=== PATIENT | female | born 1975 | race American Indian/Alaskan Native ===

== ENCOUNTER 2016-04-20 20:05 | Inpatient (IN) | payer SELFPAY ==
[2016-04-20 20:18] LABS: Basophils % (Auto) 0.6 % (0.0-1.8); Eosinophils % (Auto) 2.3 % (0.0-4.3); Hematocrit 40.9 % (30.3-42.9); Hemoglobin 13.5 gm/dl (10.1-14.3); Mean Corpuscular HGB Conc 33 % (30-34); Mean Corpuscular Hemoglobin 28 pg (28-32); Mean Corpuscular Volume 84 fl (79-97); Platelet Count 242 K/mm3 (140-440); Red Blood Count 4.86 M/mm3 (3.65-5.03); Red Cell Distribution Width 14.7 % (13.2-15.2); White Blood Count 8.1 K/mm3 (4.5-11.0)
[2016-04-20 20:30] LABS: INR 1.06 (0.87-1.13)
[2016-04-20 20:31] LABS: Partial Thromboplastin Time 27.6 Sec. (24.2-36.6)
[2016-04-20 20:35] LABS: BUN/Creatinine Ratio 21.25; Blood Urea Nitrogen 17 mg/dL (7-17); Calcium 9.1 mg/dL (8.4-10.2); Carbon Dioxide 21 mmol/L (22-30); Chloride 100.7 mmol/L (98-107); Glucose 100 mg/dL (65-100); Potassium 4.4 mmol/L (3.6-5.0); Sodium 139 mmol/L (137-145)
--- NOTE | 2016-04-20 20:36 | Cat Scan Report ---
FINAL REPORT PROCEDURE: CT HEAD/BRAIN WO CON TECHNIQUE: Computerized tomography of the head was performed without contrast material. HISTORY: neuro deficits < 6hrs or sx present upon awakening COMPARISON: No prior studies are available for comparison. FINDINGS: No CT evidence of intracranial mass, hemorrhage, acute territorial infarction, or hydrocephalus. The proximal right middle cerebral artery appears asymmetrically increased in density compared to the left side on 2 images. Correlate with clinical symptoms. There is no CT evidence of intracranial hemorrhage, mass, hydrocephalus, or acute parenchymal edema. The calvarium is intact. Visualized paranasal sinuses and mastoids are aerated. IMPRESSION: Possible hyperdense right middle cerebral artery. Correlate with clinical symptoms to exclude acute thrombus. Otherwise no abnormalities are identified by CT. Findings were discussed with Dr. Harris by telephone at 7:30 p.m. central standard time on 04/20/2016.
[2016-04-20 20:38] LABS: Anion Gap 22 mmol/L
[2016-04-20] MEDS ORDERED: NACL 0.9% IV ONE (20:49)
[2016-04-20] MEDS ORDERED: ACTIVASE ONE (20:49)
[2016-04-20] MEDS ORDERED: ACTIVASE IV ONE ×2 (20:49)
--- NOTE | 2016-04-20 21:11 | Emergency Department Report ---
ED Neuro Deficit HPI - General Chief Complaint: Neuro Symptoms/Deficit Stated Complaint: POSSIBLE CVA Time Seen by Provider: 04/20/16 20:28 Source: patient, EMS Mode of arrival: Stretcher Limitations: No Limitations - History of Present Illness Initial Comments: Apparently the patient was able to call 911 and she was concerned that she was having a stroke. Paramedics arrived on the scene and did note that she had a mild left facial paresis and was actually suffering from left arm drift. Her speech was difficult to understand. Medics doubted that the patient was actually suffering from a stroke and she was agitated and perhaps they perceived her to be unreliable. In any case they appropriately transported her as a code stroke. The patient was quite agitated at the door. Nonetheless she was immediately sent for CT. Nurses reported to me that she continued to be agitated on bed placement. At the time of my initial exam, she appeared to be having a definite right MCA syndrome. Therefore, upon review of her CT scan and having no contraindication TPA was immediately ordered. Patient was able to tell paramedics that she had a previous stroke with no deficits some time in 2016. She stated that she received treatment at [facility]. However "I never followed up". She is intermittently able to speak coherently. -: Sudden Location: speech, left arm, left leg Presenting Symptoms: Present: Weak/Paralyzed One Side, Facial Droop/Numbness, Unable to Speak Clearly, Altered Mental Status History of same: Yes Place: home Severity: severe Quality: weak, numb Improves With: none Worsens With: none On Anticoagulants: No Context: sudden onset Associated Symptoms: denies other symptoms - Related Data Allergies/Adverse Reactions: Allergies Allergy/AdvReac Type Severity Reaction Status Date / Time No Known Allergies Allergy Verified 04/20/16 20:10 ED Review of Systems ROS: Stated complaint: POSSIBLE CVA Other details as noted in HPI Comment: Unobtainable due to pts medical conditions (however she is not complaining of headache) ED Past Medical Hx - Past Medical History Previous Medical History?: Yes Hx Hypertension: Yes Hx CVA: Yes (no deficits) - Surgical History Past Surgical History?: No - Social History Smoking Status: Never Smoker Substance Use Type: None ED Neuro Physical Exam - General Limitations: Other General appearance: anxious, in distress, other (agitated) Suspected Stroke: Yes - Head Head exam: Present: atraumatic, normocephalic - Eye Eye exam: Present: normal appearance, PERRL, EOMI Pupils: Present: normal accommodation - ENT ENT exam: Present: mucous membranes moist - Neck Neck exam: Present: normal inspection. Absent: tenderness, meningismus - Respiratory Respiratory exam: Present: normal lung sounds bilaterally. Absent: respiratory distress - Cardiovascular Cardiovascular Exam: Present: regular rate, normal rhythm. Absent: systolic murmur, diastolic murmur, rubs, gallop - GI/Abdominal GI/Abdominal exam: Present: soft, normal bowel sounds. Absent: distended, tenderness, guarding, rebound, rigid - Extremities Exam Extremities exam: Present: normal inspection - Back Exam Back exam: Present: normal inspection - Neurological Exam Neurological exam: Present: altered - NIHSS Assessment Interval: Baseline 1a. Level of Consciousness: alert 1b. LOC Questions: answers no questions correctly 1c. LOC Commands: performs no tasks correctly 2. Best Gaze: partial gaze palsy 3. Visual: no visual loss 4. Facial Palsy: minor paralysis 5b. Motor Arm Right: no drift 5a. Motor Arm Left: no gravity effort 6a. Motor Leg Left: some gravity effort 6b. Motor Leg Right: no drift 7. Limb Ataxia: absent 8. Sensory: mild/moderate sensory loss 9. Best Language: severe aphasia 10. Dysarthria: severe dysarthria 11. Extinction/Inattention: visual/tactile inattention Total Score: 17 Stroke Severity: Moderate to Severe Stroke - Psychiatric Psychiatric exam: Present: flat affect - Skin Skin exam: Present: warm, dry, intact, normal color. Absent: rash ED Course Vital Signs 04/20/16 04/20/16 04/20/16 20:26 20:34 20:55 Temperature 98 F Pulse Rate 63 78 Respiratory 20 14 14 Rate Blood Pressure 136/94 Blood Pressure 125/86 136/93 [Left] O2 Sat by Pulse 100 99 99 Oximetry 04/20/16 04/20/16 04/20/16 20:56 21:10 21:25 Temperature Pulse Rate 78 73 69 Respiratory 14 14 Rate Blood Pressure 136/94 Blood Pressure 110/79 134/83 [Left] O2 Sat by Pulse 100 100 Oximetry 04/20/16 21:40 Temperature Pulse Rate 60 Respiratory 14 Rate Blood Pressure Blood Pressure 130/77 [Left] O2 Sat by Pulse 100 Oximetry - Reevaluation(s) Reevaluation #1: I discussed the case with the neurologist on-call for strokes at [facility]. Transfer consideration has been requested. CT has been sent to the regional PACS. I believe this patient is appropriate for possible neuro intervention for her MCA stroke. I believe her CT shows a proximal hyperdensity probably M1 segment and perhaps beyond. 04/20/16 21:09 Reevaluation #2: I still waiting a decision on potential transfer from the stroke neurologist at [facility]. 04/20/16 21:36 Reevaluation #3: Arranging acceptance from , stroke neurologist at [facility]. In arranging air ambulance transport. 04/20/16 21:44 - Lab Data Result diagrams: 04/20/16 20:10 04/20/16 20:10 Lab Results 04/20/16 04/20/16 04/20/16 Range/Units 20:10 20:10 20:10 WBC 8.1 (4.5-11.0) K/mm3 RBC 4.86 (3.65-5.03) M/mm3 Hgb 13.5 (10.1-14.3) gm/dl Hct 40.9 (30.3-42.9) % MCV 84 (79-97) fl MCH 28 (28-32) pg MCHC 33 (30-34) % RDW 14.7 (13.2-15.2) % Plt Count 242 (140-440) K/mm3 Lymph % (Auto) 34.2 (13.4-35.0) % [place] % (Auto) 9.1 H (0.0-7.3) % Eos % (Auto) 2.3 (0.0-4.3) % Baso % (Auto) 0.6 (0.0-1.8) % Lymph # 2.8 (1.2-5.4) K/mm3 [place] # 0.7 (0.0-0.8) K/mm3 Eos # 0.2 (0.0-0.4) K/mm3 Baso # 0.0 (0.0-0.1) K/mm3 Seg Neutrophils % 53.8 (40.0-70.0) % Seg Neutrophils # 4.3 (1.8-7.7) K/mm3 PT 13.7 (12.2-14.9) Sec. INR 1.06 (0.87-1.13) APTT 27.6 (24.2-36.6) Sec. Thrombin Time (15.1-19.6) Sec. Sodium 139 (137-145) mmol/L Potassium 4.4 (3.6-5.0) mmol/L Chloride 100.7 (98-107) mmol/L Carbon Dioxide 21 L (22-30) mmol/L Anion Gap 22 mmol/L BUN 17 (7-17) mg/dL Creatinine 0.8 (0.7-1.2) mg/dL Estimated GFR > 60 ml/min BUN/Creatinine Ratio 21.25 % Glucose 100 (65-100) mg/dL Calcium 9.1 (8.4-10.2) mg/dL Troponin T < 0.010 (0.00-0.029) ng/mL 04/20/16 Range/Units 20:10 WBC (4.5-11.0) K/mm3 RBC (3.65-5.03) M/mm3 Hgb (10.1-14.3) gm/dl Hct (30.3-42.9) % MCV (79-97) fl MCH (28-32) pg MCHC (30-34) % RDW (13.2-15.2) % Plt Count (140-440) K/mm3 Lymph % (Auto) (13.4-35.0) % [place] % (Auto) (0.0-7.3) % Eos % (Auto) (0.0-4.3) % Baso % (Auto) (0.0-1.8) % Lymph # (1.2-5.4) K/mm3 [place] # (0.0-0.8) K/mm3 Eos # (0.0-0.4) K/mm3 Baso # (0.0-0.1) K/mm3 Seg Neutrophils % (40.0-70.0) % Seg Neutrophils # (1.8-7.7) K/mm3 PT (12.2-14.9) Sec. INR (0.87-1.13) APTT (24.2-36.6) Sec. Thrombin Time 17.1 (15.1-19.6) Sec. Sodium (137-145) mmol/L Potassium (3.6-5.0) mmol/L Chloride (98-107) mmol/L Carbon Dioxide (22-30) mmol/L Anion Gap mmol/L BUN (7-17) mg/dL Creatinine (0.7-1.2) mg/dL Estimated GFR ml/min BUN/Creatinine Ratio % Glucose (65-100) mg/dL Calcium (8.4-10.2) mg/dL Troponin T (0.00-0.029) ng/mL - EKG Data -: EKG Interpreted by Me EKG shows normal: sinus rhythm, axis, intervals, QRS complexes, ST-T waves Rate: normal Interpretation: no acute changes - Radiology Data Radiology results: report reviewed interpreted by me: Normal CT brain. I believe there is hyperdensity in the right MCA. - Core Measures AMI Core Measures Followed: Yes Critical Care Time: Yes Critical care time in (mins) excluding proc time.: 60 Critical care attestation.: If time is entered above; I have spent that time in minutes in the direct care of this critically ill patient, excluding procedure time. ED Disposition Clinical Impression: Acute CVA (cerebrovascular accident) Disposition: DC/TX ANOTHER TYPE HEALTHCARE Is pt being admited?: No Does the pt Need Aspirin: No Condition: Stable Time of Disposition: 21:45
--- NOTE | 2016-04-20 23:44 | History and Physical Report ---
History of Present Illness Chief complaint: weakness History of present illness: 40 YO Female with HTN,CVA, Obesity presents to ED for evaluation. Pt found to have acute onset Left side weakness while at home. Pt notified EMS, and was transported to [facility]. Pt seen and evaluated in ED and found to have symptoms consistent with acute stroke. Pt treated with TPA in ED with improvement in symptoms. Pt admitted to ICU S/P TPA administration. Past History Past Medical History: hypertension, stroke Past Surgical History: No surgical history, Other (reviewed) Social history: single. denies: smoking, alcohol abuse Family history: diabetes, hypertension Medications and Allergies Allergies Allergy/AdvReac Type Severity Reaction Status Date / Time No Known Allergies Allergy Verified 04/20/16 20:10 Home Medications Medication Instructions Recorded Confirmed Last Taken Type No Known Home Medications [No 04/21/16 04/21/16 Unknown History Reported Home Medications] Review of Systems All systems: negative Neurological: weakness, aphasia, change in speech, motor disturbance Exam - Constitutional Vitals: Temp Pulse Resp BP Pulse Ox 98 F 76 14 132/86 100 04/20/16 20:26 04/20/16 21:55 04/20/16 21:55 04/20/16 21:55 04/20/16 21:55 General appearance: Present: mild distress, obese - EENT Eyes: Present: PERRL ENT: hearing intact, clear oral mucosa - Neck Neck: Present: supple, normal ROM - Respiratory Respiratory effort: normal Respiratory: bilateral: CTA - Cardiovascular Heart Sounds: Present: S1 & S2. Absent: rub, click - Extremities Extremities: pulses symmetrical, No edema Peripheral Pulses: within normal limits - Abdominal General gastrointestinal: Present: soft, non-tender, non-distended, normal bowel sounds Female genitourinary: Present: normal - Integumentary Integumentary: Present: clear, warm, dry - Musculoskeletal Musculoskeletal: left sided weakness - Psychiatric Psychiatric: appropriate mood/affect, intact judgment & insight - Neurologic Neurologic: CNII-XII intact, moves all extremities, no gait normal Results - Labs CBC & Chem 7: 04/20/16 20:10 04/20/16 20:10 Labs: Abnormal lab results 04/20/16 04/20/16 Range/Units 20:10 20:10 [place] % (Auto) 9.1 H (0.0-7.3) % Carbon Dioxide 21 L (22-30) mmol/L Assessment and Plan - Patient Problems (1) Acute CVA (cerebrovascular accident) Current Visit: Yes Status: Acute Plan to address problem: Stroke Protocol: Pt treated with TPA in ED, Pt admitted to ICU S/P TPA, CT head , MRI/MRA brain, Echo, Carotid doppler, antiplatelet therapy 24 hours after administration of TPA, PT/OT/ Speech therapy The high probability of a clinically significant, sudden or life threatening deterioration of the [neuro,cardiac,respiratory] system(s) required my full and direct attention, intervention and personal management. The aggregate critical care time was [65] minutes. This time is in addition to time spent performing reported procedures but includes the following: [x] Data Review and interpretation [x] Patient assessment and monitoring of vital signs [x] Documentation [x] Medication orders and management (2) HTN (hypertension) Current Visit: Yes Status: Acute Plan to address problem: monitor bp q shift, continue current care. (3) DVT prophylaxis Current Visit: Yes Status: Acute
[2016-04-21] MEDS ORDERED: DULCOLAX PR PRN ×2 (00:36→00:37)
[2016-04-21] MEDS ORDERED: ALUM-MAG HYDROX-SIMETH 200-200-20MG/5ML PO PRN (00:36)
[2016-04-21] MEDS ORDERED: MILK OF MAGNESIA PO PRN ×2 (00:36→00:37)
[2016-04-21] MEDS ORDERED: REGLAN PO PRN (00:37)
[2016-04-21] MEDS ORDERED: PHENERGAN PR PRN (00:37)
[2016-04-21] MEDS ORDERED: ZOFRAN IV PRN (00:37)
[2016-04-21] MEDS ORDERED: TYLENOL PO PRN (00:37)
[2016-04-21] MEDS ORDERED: SODIUM CHLORIDE FLUSH SYRINGE 10 ML IV PRN (00:37)
--- NOTE | 2016-04-21 07:47 | Admit Criteria Form ---
Admission Criteria Documentation: STROKE: ISCHEMIC Clinical Indications for Admission to Inpatient Care (Place 'X' for any and all applicable criteria): Admission is indicated for ANY ONE of the following(1)(2)(3)(4): [ X]I. Acute stroke Extended stay beyond goal length of stay may be needed for(1)(2) [ ]a) Major deficit or clinical deterioration [ ]b) Hospital-acquired infection (eg, urinary tract infection, pneumonia) [ ]c) Embolic cause of stroke [ ]d) Venous thromboembolism(9) [ ]e) Seizures [ ]f) Bleeding (eg, cerebral) [ ]g) Increased intracranial pressure [ ]h) Comorbidities [ ]i) Surgical intervention The original [facility] content created by [employer] has been revised. The portions of the content which have been revised are identified through the use of italic text or in bold, and [facility] has neither reviewed nor approved the modified material. All other unmodified content is copyright [facility]. Please see references footnoted in the original [facility] edition 2016 Admission Criteria Met: Yes
--- NOTE | 2016-04-21 12:54 | Echocardiography Report ---
Transthoracic Echocardiogram Indication: Stroke BP: 108/72 Conclusions *The left ventricular chamber size is normal. *Global left ventricular wall motion and contractility are within normal limits. *The estimated ejection fraction is 55-60%. *The interatrial septum appears normal. *No atrial septal defected is demonstrated by agitated saline contrast. Findings Left Ventricle: The left ventricular chamber size is normal. Global left ventricular wall motion and contractility are within normal limits. Global left ventricular systolic function is normal. The estimated ejection fraction is 55-60%. Normal left ventricular diastolic filling is observed. Left Atrium: The left atrium is normal in size with no visual thrombus identified. Right Ventricle: The right ventricular cavity size is normal. The right ventricular global systolic function is normal. Right Atrium: The right atrium appears normal. The interatrial septum appears normal. No atrial septal defected is demonstrated by agitated saline contrast. Aortic Valve: The aortic valve structure is normal. There is no evidence of aortic regurgitation. There is no evidence of aortic stenosis. Mitral Valve: The mitral valve leaflets appear normal. There is no evidence of mitral regurgitation. There is no evidence of mitral stenosis. Tricuspid Valve: The tricuspid valve leaflets are normal. There is trace tricuspid regurgitation. The right ventricular systolic pressure is calculated at 21 mmHg. There is no tricuspid stenosis. Pulmonic Valve: The pulmonic valve appears normal. There is trace pulmonic regurgitation. There is no pulmonic stenosis. Pericardium: There is no pericardial effusion. Aorta: There is no dilatation of the ascending aorta. There is no dilatation of the aortic arch. There is no dilatation of the descending thoracic aorta. There is no dilatation of the aortic root. Venous: The inferior vena cava appears normal in size. Contrast: Intravenous agitated saline contrast was used to assess intracardiac shunting. Measurements Chambers MM Name Value Normal Range Ao root diameter (MM) 3 cm (2 - 3.7) LA dimension (AP) MM 3.1 cm (1.9 - 4) LA:Ao ratio (MM) 1.03 ratio - AV cusp separation (MM) 1.9 cm (1.5 - 2.6) Chambers 2D Name Value Normal Range RVIDd (AP) 2D 2.66 cm (0.9 - 2.6) IVSd (2D) 1.01 cm (0.6 - 1.1) LVPWd (2D) 1.07 cm (0.6 - 1.1) IVS:LVPW ratio (2D) 0.94 ratio - LVIDd (2D) 4.45 cm (3.7 - 5.6) LVIDs (2D) 2.79 cm (2 - 3.8) LV FS (Teichholz) (2D) 37.3 % - LV FS (cube) (2D) 37.3 % - EF Teichholz (2D) 67.5 % - LA dimension (AP) 2D 3.2 cm (1.9 - 4) Volumes/Mass Name Value Normal Range LA ESV SP 4CH (MOD) 30 ml - LA ESV SP 2CH (MOD) 32 ml - LA ESV BP (MOD) 33 ml - LA ESV BP (MOD) index 19.4 ml/m2 - LV EDV SP 4CH (MOD) 35 ml - LV ESV SP 4CH (MOD) 16 ml - EF SP 4CH (MOD) 54 % - LV EDV SP 2CH (MOD) 52 ml - LV ESV SP 2CH (MOD) 19 ml - EF SP 2CH (MOD) 63 % - LV EDV BP 48 ml - LV ESV BP 18 ml - BP EF (MOD) 63 % - Diastolic/Systolic Function Name Value Normal Range MV E-wave Vmax 0.7 m/sec - MV deceleration time 183 msec - MV A-wave Vmax 0.53 m/sec - MV E:A ratio 1.3 ratio - LV septal e' Vmax 0.08 m/sec - LV lateral e' Vmax 0.09 m/sec - LV E:e' septal ratio 9.1 ratio - LV E:e' lateral ratio 7.4 ratio - Aortic Valve Name Value Normal Range AV VTI 22.3 cm - AV mean gradient 3 mmHg - LVOT diameter 2 cm - LVOT VTI 20.4 cm - LVOT mean gradient 2 mmHg - SV LVOT 64 ml - EUNICE (continuity VTI) 2.87 cm2 - Mitral Valve Name Value Normal Range MV PHT 51 msec - MVA (PHT) 4.31 cm2 - Tricuspid Valve Name Value Normal Range TR Vmax 2.12 m/sec - TR peak gradient 18 mmHg - RAP 3 mmHg - RVSP 21 mmHg - Pulmonic Valve/Qp:Qs Name Value Normal Range PV Vmax 0.81 m/sec - PV peak gradient 3 mmHg - OK end-diastolic Vmax 1 m/sec - PV acceleration time 176 msec -
--- NOTE | 2016-04-21 14:34 | Progress Note ---
Assessment and Plan Assessment and plan: Patient is a 40-year-old woman history of hypertension who presented with left- sided weakness status post TPA which has resolved the weakness 1. Acute ischemic stroke: Continue statins, aspirin already started 2. Hypertension, stable. Likely hypotensive 3. DVT prophylaxis: SCD History Interval history: Patient seen and examined. Follow up on left-sided weakness which has resolved. Overnight uneventful. No cp, sob, n/v or severe headaches. Imaging, old records, testing, labs, nursing notes reviewed. Hospitalist Physical - Physical exam Narrative exam: GEN: WDWN, NAD, AWAKE, ALERT, ORIENTATED x 3 CVS: RRR, NORMAL S1S2 LUNGS/CHEST: CTA B, NORMAL CHEST EXPANSION B, GOOD AIR ENTRY B ABD: SOFT NTND, GBS, NO REBOUND OR GUARDING EXT/SKIN: NO SIGNIFICANT EDEMA OR RASH MSK: FROM X 4 EXTREMITIES NEURO: CN 2-12 GROSSLY INTACT, NO FOCAL DEFICITS, moving all extremities PSY: CALM - Constitutional Vitals: Temp Pulse Resp BP Pulse Ox 98.3 F 81 12 120/80 100 04/21/16 07:48 04/21/16 13:01 04/21/16 13:01 04/21/16 13:01 04/21/16 13:01 General appearance: Present: obese Results - Labs CBC & Chem 7: 04/20/16 20:10 04/20/16 20:10 Labs: Laboratory Last Values WBC 8.1 K/mm3 (4.5-11.0) 04/20/16 20:10 RBC 4.86 M/mm3 (3.65-5.03) 04/20/16 20:10 Hgb 13.5 gm/dl (10.1-14.3) 04/20/16 20:10 Hct 40.9 % (30.3-42.9) 04/20/16 20:10 MCV 84 fl (79-97) 04/20/16 20:10 MCH 28 pg (28-32) 04/20/16 20:10 MCHC 33 % (30-34) 04/20/16 20:10 RDW 14.7 % (13.2-15.2) 04/20/16 20:10 Plt Count 242 K/mm3 (140-440) 04/20/16 20:10 Lymph % (Auto) 34.2 % (13.4-35.0) 04/20/16 20:10 [place] % (Auto) 9.1 % (0.0-7.3) H 04/20/16 20:10 Eos % (Auto) 2.3 % (0.0-4.3) 04/20/16 20:10 Baso % (Auto) 0.6 % (0.0-1.8) 04/20/16 20:10 Lymph # 2.8 K/mm3 (1.2-5.4) 04/20/16 20:10 [place] # 0.7 K/mm3 (0.0-0.8) 04/20/16 20:10 Eos # 0.2 K/mm3 (0.0-0.4) 04/20/16 20:10 Baso # 0.0 K/mm3 (0.0-0.1) 04/20/16 20:10 Seg Neutrophils % 53.8 % (40.0-70.0) 04/20/16 20:10 Seg Neutrophils # 4.3 K/mm3 (1.8-7.7) 04/20/16 20:10 PT 13.7 Sec. (12.2-14.9) 04/20/16 20:10 INR 1.06 (0.87-1.13) 04/20/16 20:10 APTT 27.6 Sec. (24.2-36.6) 04/20/16 20:10 Thrombin Time 17.1 Sec. (15.1-19.6) 04/20/16 20:10 Sodium 139 mmol/L (137-145) 04/20/16 20:10 Potassium 4.4 mmol/L (3.6-5.0) 04/20/16 20:10 Chloride 100.7 mmol/L (98-107) 04/20/16 20:10 Carbon Dioxide 21 mmol/L (22-30) L 04/20/16 20:10 Anion Gap 22 mmol/L 04/20/16 20:10 BUN 17 mg/dL (7-17) 04/20/16 20:10 Creatinine 0.8 mg/dL (0.7-1.2) 04/20/16 20:10 Estimated GFR > 60 ml/min 04/20/16 20:10 BUN/Creatinine Ratio 21.25 % 04/20/16 20:10 Glucose 100 mg/dL (65-100) 04/20/16 20:10 Calcium 9.1 mg/dL (8.4-10.2) 04/20/16 20:10 Troponin T < 0.010 ng/mL (0.00-0.029) 04/20/16 20:10 - Imaging and Cardiology CT Scan - head: report reviewed
[2016-04-21] MEDS ORDERED: ZOCOR PO SCH (22:00)
[2016-04-21] MEDS: ASPIRIN PO SCH (22:45)
[2016-04-22 08:24] VITALS: BP 111/71
--- NOTE | 2016-04-22 09:48 | Magnetic Resonance Report ---
FINAL REPORT PROCEDURE: MR BRAIN WO CON TECHNIQUE: Sagittal T1, axial diffusion-weighted and ADC map, axial T2, T1, and FLAIR, and coronal FLAIR images of the brain were performed. HISTORY: stroke COMPARISON: None FINDINGS: The cerebellar tonsils are normally positioned. The pituitary gland is normal in size, the posterior bright spot normal in location. The corpus callosum is normal in size and signal intensity. There is restricted diffusion with associated hyperintense T2 and FLAIR signal within the right caudate head with extension into the anterior right caudate body as well as within the anterior right putamen. Subtle abnormal signal is present within the right posterior frontal and right temporal subcortical white matter. There is no intra or extra-axial hemorrhage. There is no mass effect or shift of midline structures. There is no gross mass lesion or leptomeningeal abnormality given limitation of lack of IV contrast. Normal segmentally seen intracranial vascular flow voids are present. There is no advanced microvascular ischemic change or suspected demyelinating disease. The visualized paranasal sinuses and mastoid air cells are clear. [id number] nasal septal deviation is present. IMPRESSION: Acute bland ischemia involving the right caudate head and proximal caudate body as well as the right putamen. Smaller focal small vessel disease or subtle ischemia involving the subcortical white matter of the posterior right frontal and temporal lobe. This report was relayed to nurse Orlando Collins at 9:42 a.m. Eastern standard time 04/22/2016.
[2016-04-22] MEDS: ASPIRIN PO SCH (10:57)
--- NOTE | 2016-04-22 12:58 | Discharge Summary ---
Providers - Providers Date of Admission: 04/21/16 00:36 Date of discharge: 04/22/16 Attending physician: BRENDA FORREST 04/21/16 00:37 Occupational Therapy Evaluate and Treat [CONS] Routine Comment: Reason For Exam: Neuro deficits Physical Therapy Evaluation and Treat [CONS] Routine Comment: Reason For Exam: Neuro deficits Speech Therapy Evaluation and Treat [CONS] Routine Reason For Exam: swallow eval Primary care physician: PRUNER Hospitalization Condition: Stable Hospital course: Patient is a 40-year-old woman history of diet controlled hypertension who presented with left-sided weakness status post TPA which has resolved the weakness 1. Acute ischemic stroke: Continue statins, aspirin already started 2. Hypertension, stable. Likely hypotensive 3. DVT prophylaxis: SCD Mri brain confirms acute ischemic stroke declined rehab, father at bedside to help time of discharge 34 minutes. Disposition: DC/[place] HOME UNDER HOME HEALTH Core Measure Documentation - Palliative Care Palliative Care/ Comfort Measures: Not Applicable - Core Measures Any of the following diagnoses?: stroke - VTE Discharge Requirements Deep Vein Thrombosis/Pulmonary Embolism Present on Admission: No Has pt received <5 days of overlap therapy or INR<2.0: No Anticoagulant overlap therapy prescribed at discharge: No Contraindication No Overlap Therapy order at DC: Not Indicated - Stroke Discharge Requirements Statin for LDL = or >70 mg/dl on DC: Yes Anticoag for atrial fib/atrial flutter: Not Applicable Antithrombotic for ischemic stroke: Yes Exam - Physical Exam Narrative exam: GEN: WDWN, NAD, AWAKE, ALERT, ORIENTATED x 3 CVS: RRR, NORMAL S1S2 LUNGS/CHEST: CTA B, NORMAL CHEST EXPANSION B, GOOD AIR ENTRY B ABD: SOFT NTND, GBS, NO REBOUND OR GUARDING EXT/SKIN: NO SIGNIFICANT EDEMA OR RASH MSK: FROM X 4 EXTREMITIES NEURO: CN 2-12 GROSSLY INTACT, NO FOCAL DEFICITS, moving all extremities, gait test and normal PSY: CALM - Constitutional Vitals: Temp Pulse Resp BP Pulse Ox 97.6 F 64 18 111/71 98 04/22/16 08:23 04/22/16 08:23 04/22/16 08:23 04/22/16 08:23 04/22/16 12:35 Plan Activity: advance as tolerated (no strenous activity including working without clearance from PCP), no driving until cleared by PCP Diet: low salt Special Instructions: physical therapy, occupational therapy, home health RN Follow up with: PRIMARY CARE,MD [Primary Care Provider] - 3-5 Days Prescriptions: Simvastatin [Zocor TAB] 20 mg PO QHS #30 tablet Aspirin [Aspirin TAB] 325 mg PO QDAY #30 tablet
--- NOTE | 2016-04-22 16:29 | Magnetic Resonance Report ---
FINAL REPORT PROCEDURE: MR MRA/MRV HEAD WO CON TECHNIQUE: Consent was obtained. 3D [id number] MRA was performed through the head. Axial source as well as maximal intensity projection images were submitted for review. HISTORY: stroke COMPARISON: None FINDINGS: There is normal flow signal of the vertebral arteries at the skullbase, being roughly codominant. The basilar and posterior cerebral arteries are unremarkable. Likewise, there is normal flow signal of the imaged internal carotid arteries, anterior and middle cerebral arteries. There is no aneurysm, high-grade stenosis or vascular occlusion. No vascular malformation is seen. The anterior communicating artery and subtly seen posterior communicating arteries are unremarkable. IMPRESSION: No MRI evident high-grade stenosis or aneurysm.
--- NOTE | 2016-04-25 07:47 | Vascular Lab Report ---
CAROTID DUPLEX STUDY: RIGHT PSVEDV CCA [id number] CCA DIST:[id number] ICA PROX:3211 ICA MID:7931 ICA DIST:[id number] ECA: 68 VERT: 35 14 LEFT PSVEDV CCA PROX:[id number] CCA DIST:7827 ICA PROX:7423 ICA MID:5520 ICA DIST:6226 ECA: 66 VERT: 56 21 REASON FOR EXAM: Stroke. COMMENTS ON THE RIGHT: Doppler frequency analysis is consistent with 16 to 49 percent diameter reduction of the internal carotid artery. Minimal amount of plaque is seen. The common carotid artery is patent. The external carotid artery is patent. The vertebral artery has antegrade flow. COMMENTS ON THE LEFT: Doppler frequency analysis is consistent with 16 to 49 percent diameter reduction of the internal carotid artery. Minimal amount of plaque is seen. The common carotid artery is patent. The external carotid artery is patent. The vertebral artery has antegrade flow. IMPRESSION: Less than 50% diameter reduction in the internal carotid arteries bilaterally. Consider repeat carotid artery duplex in 12 months.
== END 2016-04-22 15:00 | disposition home health service (06) | DRG 62 ==
LOC: ED 20:05 → CC1 04-21 00:36 → 4A 04-21 23:03
PROVIDERS: ADMIT Internal Medicine; ATTEND Internal Medicine
DX: I63.9 Cerebral infarction, unspecified (principal); Z68.1 Body mass index [BMI] 19.9 or less, adult; I10 Essential (primary) hypertension; E66.9 Obesity, unspecified; Z83.3 Family history of diabetes mellitus; Z82.49 Family history of ischemic heart disease and other diseases of the circulatory system
CPT/HCPCS: 36415; 70450; 70544; 70551; 80048; 80061; 84484; 85025; 85610; 85670; 85730; 93005; 93010; 93306; 93880; 96374; J2997